=== PATIENT | male | born 1975 | race Caucasian/White ===

== ENCOUNTER → 2016-05-06 | Outpatient (REF) | LOC: ZLAB.WCH 16:21 | DX: Z01.89 Encounter for other specified special examinations (principal) ==

== ENCOUNTER → 2016-05-06 | Outpatient (CLI) | payer BC | LOC: ZCOL.LAB 16:29 | DX: Z01.89 Encounter for other specified special examinations (principal) ==

== ENCOUNTER → 2016-05-17 | Outpatient (REF) | LOC: ZLAB.WCH 15:54 | DX: Z01.89 Encounter for other specified special examinations (principal) ==